=== PATIENT | female | born 1980 | race Two or more races ===

== ENCOUNTER 2016-09-29 16:41 | Inpatient (IN) | payer MEDICAID ==
[2016-09-29 17:11] VITALS: BMI 27.3
[2016-09-29] MEDS ORDERED: Vaccine Screening Complete SCH (18:00)
[2016-09-29] MEDS ORDERED: LR 500 ML IV PRN (18:33)
[2016-09-29] MEDS ORDERED: LR 250 ML IV PRN (18:33)
[2016-09-29] MEDS ORDERED: BUTORPHANOL 1 MG/ML VIAL IV PRN (18:33)
[2016-09-29] MEDS ORDERED: LR 1,000 ML IV SCH (19:00)
--- NOTE | 2016-09-29 19:02 | HISTPHYS ---
- HISTORY OF PRESENT ILLNESS Age: 36 Estimated Due Date: 09/24/16 Gestational Age: 41 : 5 Para: 4 Patient Presents to:: Labor & Delivery Presents for:: Contractions, Vaginal Bleeding. Denies: Decreased Movement , Leaking Fluid Details: Patient started cece around 130 and they are now every 3 minutes. Goes to [facility]. Current : GBS -, Other Complications (AMA (declined testing), dilated renal pelvis (resolved on repeat scan)) - REVIEW OF SYSTEMS ROS Negative Except As Marked: Yes ROS Negative except as marked Pain: Reports: Abdominal - ALLERGIES Allergies Allergy/AdvReac Type Severity Reaction Status Date / Time No Known Allergies Allergy Unverified 09/29/16 17:03 - CURRENT MEDICATIONS Home Medication List Vits W-Ca,Fe,FA(<1Mg) [] 1 each PO DAILY 09/29/16 [History] - PAST MEDICAL HISTORY Reports: No Significant History - PAST SURGICAL HISTORY Reports: None - FAMILY HISTORY Family History: Noncontributory - SOCIAL HISTORY Travel Outside of [place] in the Last 3 Months?: No Smoking Status: Never smoker - GENITOURINARY HISTORY HX : 5 Para: 4 Live Deliveries (# of pregnancies resulting in a live ): 4 - PHYSICAL EXAM Vital Signs:: Temperature: 98.3 F (09/29/16 16:41) HR: 93 (09/29/16 16:41) RR: 16 (09/29/16 16:41) BP: 128/73 (09/29/16 16:41) Pulse Ox: () GENERAL: Alert, Oriented, No Acute Distress CARDOVASCULAR/CHEST: Normal RESPIRATORY: Normal - CTA ABDOMEN: Bowel Sounds Present, Gravid, Soft Fundal Height (cm): 40 GENITOURINARY: Normal, VULVA & INTROITUS (normal with no masses, lesions, rashes , or swelling) MUSCULOSKELETAL: Normal, Strength/Tone Normal for Age. negative: Atrophy Dilation (cm): 4 Effacement (%): 80 Station: -2 Heart Rate: 140 Reactive Contractions: Regular Membranes: AROM Amniotic Fluid: Blood Tinged - ASSESSMENT (ACTIVE PROBLEMS) (1) Post term over 40 weeks Acute O48.0 - POST-TERM - PLAN Admit, Amniotomy, Consent, Monitoring, Ice Chips, IV Hydration, Labs, Pain Management
[2016-09-29 19:03] LABS: AUTOMATED BASOPHIL 1.2 % (0-2); AUTOMATED EOSINOPHIL 0.6 % (0-5); AUTOMATED LYMPH 18.6 % (17-44); AUTOMATED MONOCYTE 6.2 % (3-10); AUTOMATED NEUTROPHIL 73.4 % (45-76); MPV 7.8 fL (7.4-10.4)
[2016-09-29] MEDS ORDERED: OXYTOCIN 1,000 ML IV ONE (19:35)
[2016-09-29] MEDS ORDERED: LIDOCAINE 1% 30 ML VIAL (PRESERVATIVE FREE) ONE (19:35)
[2016-09-30] MEDS ORDERED: OXYCODONE HCL 5 MG TABLET PO PRN ×2 (00:05)
[2016-09-30] MEDS ORDERED: BISACODYL 10 MG SUPP PR PRN (00:05)
[2016-09-30] MEDS ORDERED: DIBUCAINE OINTMENT 1 OZ TUBE TOP PRN (00:05)
[2016-09-30] MEDS ORDERED: LANOLIN OINTMENT 0.25 OZ TUBE TOP PRN (00:05)
[2016-09-30] MEDS ORDERED: ZOLPIDEM TARTRATE 5 MG TAB PO PRN (00:05)
[2016-09-30] MEDS ORDERED: SODIUM CHLORIDE 0.9% 3 ML FLUSH FLUSH PRN (00:05)
[2016-09-30] MEDS ORDERED: ACETAMINOPHEN 325 MG/TAB TABLET PO PRN (00:05)
[2016-09-30] MEDS ORDERED: HYDROCORTISONE 25 MG SUPP PR PRN (00:05)
[2016-09-30] MEDS ORDERED: OXYTOCIN 1,000 ML IV ONE (00:05)
--- NOTE | 2016-09-30 00:11 | OBDELNOTE ---
Delivery Note - Problem/Diagnosis (1) Post term over 40 weeks Status: Acute (2) Vaginal delivery Status: Acute (3) Single live Status: Acute - Admitting Diagnosis Reason for Visit: Contractions Admission Date: 09/29/16 Admission time: 16:57 Gestational Age: 40 Labor Anesthesia/Analgesia: None Date: 09/30/16 Time: 23:51 Spontaneous Vaginal Delivery Presentation: Vertex Episiotomy: None Laceration: None EBL: 250 Fluid: Clear Placenta: Spontaneous Description: Normal, Complete Cord: 3 Vessels - Procedures Procedures: None - Data Order: [place] Infant Sex: Male Weight: 3.6 kg (1min): 9 (5min): 10 Feeding Plans for Infant: Breast Plans Circumcision: No [place] Complications: No Complications [place] to:: LDRP/Mother's Room - /Operative Complications /Op Complications: None Discharge Planning - REASON FOR ADMISSION Patient Presents to:: Labor & Delivery Reason for Visit: Contractions, Vaginal Bleeding - DISCHARGE INSTRUCTIONS Discharge Disposition: Home Condition: Good Prescriptions: Hydrocodone Bit/Acetaminophen [[place] 5-325 Tablet] 1 - 2 tab PO Q4H PRN #30 tab PRN Reason: Pain Ibuprofen Tablet [Motrin] 800 mg PO Q6 PRN #45 tab PRN Reason: Pain Referrals: [facility] [Provider Group] - Six Weeks Diet at Discharge: Regular Activity: Pelvic Rest Call Physician for: Foul Smelling Discharge, Pain/Redness in Calf/Leg, Soaking Pad in 1 hr, Temperature Above 100.4 Incision, Lacerations, or Tears: No
--- NOTE | 2016-09-30 00:14 | PCM.DCS92 ---
<Pat Burden - Last Filed: 09/30/16 00:13> - Primary/Secondary Discharge Diagnoses (1) Post term over 40 weeks Acute O48.0 - POST-TERM (2) Vaginal delivery Acute O80 - ENCOUNTER FOR FULL-TERM UNCOMPLICATED DELIVERY (3) Single live Acute Z37.0 - SINGLE LIVE - HOSPITAL COURSE /Op Complications: None - DISCHARGE INSTRUCTIONS Discharge Disposition: Home Discharge Condition: Good Cognitive Discharge Status: Unimpaired Fuctional Discharge Status: Independent Patient Leaving with Prescriptions?: Yes Home Medications/ New Prescriptions: New Hydrocodone Bit/Acetaminophen [[place] 5-325 Tablet] 1 - 2 tab PO Q4H PRN #30 tab PRN Reason: Pain Ibuprofen Tablet [Motrin] 800 mg PO Q6 PRN #45 tab PRN Reason: Pain No Action Vits W-Ca,Fe,FA(<1Mg) [] 1 each PO DAILY Referrals: [facility] [Provider Group] - 11/11/16 9:00 am - Diet Diet at Discharge: Regular - Activity Activity: Pelvic Rest - Instructions Call Physician for: Foul Smelling Discharge, Pain/Redness in Calf/Leg, Soaking Pad in 1 hr, Temperature Above 100.4 - Incision Incision, Lacerations, or Tears: No - DC Summary Notes Discharge Medications: *See "Discharge Medication List" for a complete list of Home Medications and Discharge Medications.* Obstetric Hospital Course - Admitting Diagnosis Reason for Visit: Contractions Admission Date: 09/29/16 Admission time: 16:57 Gestational Age: 40 Labor Anesthesia/Analgesia: None Date: 09/30/16 Time: 23:51 Spontaneous Vaginal Delivery Presentation: Vertex Episiotomy: None Laceration: None EBL: 250 Fluid: Clear Placenta: Spontaneous Description: Normal, Complete Cord: 3 Vessels - Procedures Procedures: None - Data Order: [place] Sex: Male Weight: 3.6 kg (1min): 9 (5min): 10 Feeding Plans for : Breast Plans Circumcision: No Complications: No Complications [place] to:: LDRP/Mother's Room - /Operative Complications /Op Complications: None <Marty Gutierrez - Last Filed: 10/01/16 10:11> - Primary/Secondary Discharge Diagnoses (1) care following vaginal delivery Acute Z39.2 - ENCOUNTER FOR ROUTINE FOLLOW-UP - DC Summary Notes Discharge Medications: *See "Discharge Medication List" for a complete list of Home Medications and Discharge Medications.*
[2016-09-30] MEDS: IBUPROFEN 800 MG TAB PO SCH ×4 (00:53→21:57)
[2016-09-30] MEDS ORDERED: Pharmacy Order Set Alert SCH (01:00)
[2016-09-30] MEDS: SODIUM CHLORIDE 0.9% 3 ML FLUSH FLUSH SCH ×2 (06:17→19:44)
[2016-09-30] MEDS: LR 1,000 ML IV SCH (06:17)
--- NOTE | 2016-09-30 07:25 | OBGYNPROG ---
- Subjective Post Day: 1 Reports: Ambulating, Out of Bed, Tolerating Liquid Diet, Voiding Freely, Moderate Lochia. Denies: Complaints, Dizziness, Headache, Nausea, Vomitting, Chest Pain, Shortness of Breath Pain: Reports: Well Managed - Objective Vital Signs: Last Vital Signs Temp 98.1 F 09/30/16 06:19 Pulse 78 09/30/16 06:19 Resp 18 09/30/16 06:19 BP 129/60 09/30/16 06:19 Pulse Ox H&H Results 09/29/16 18:50 Hgb 12.1 Hct 36.0 General: Alert, Oriented, No Acute Distress Cardiovascular/Chest: Normal Respiratory: Normal - CTA ABDOMEN: Non-Tender, Soft Fundus: Firm. Denies: Tender EXTERMITIES: Moves All Extremeties DARRIN'S SIGN: Denies: Bilateral OBGYN Progress Note - ASSESSMENT (1) care following vaginal delivery Status: Acute Code(s): Z39.2 - ENCOUNTER FOR ROUTINE FOLLOW-UP - PLAN Routine Care, Supportive Care
[2016-10-01] MEDS: SODIUM CHLORIDE 0.9% 3 ML FLUSH FLUSH SCH (03:20)
[2016-10-01] MEDS: IBUPROFEN 800 MG TAB PO SCH ×2 (03:20→06:04)
[2016-10-01 05:32] VITALS: BP 125/60; PULSE 78; TEMP 97.8
[2016-10-01] MEDS: LR 1,000 ML IV SCH (06:04)
--- NOTE | 2016-10-01 10:11 | OBGYNPROG ---
- Subjective Post Day: 1 Reports: Ambulating, Out of Bed, Tolerating Regular Diet, Moderate Lochia. Denies: Complaints Pain: Reports: None - Objective Vital Signs: Last Vital Signs Temp 97.8 F 10/01/16 05:30 Pulse 78 10/01/16 05:30 Resp 18 10/01/16 05:30 BP 125/60 10/01/16 05:30 Pulse Ox General: Alert, Oriented, No Acute Distress ABDOMEN: Non-Distended, Non-Tender, Soft Fundus: U - 1, Firm MUSCULOSKELETAL: Normal EXTERMITIES: Moves All Extremeties DARRIN'S SIGN: Denies: Bilateral OBGYN Progress Note - ASSESSMENT (1) care following vaginal delivery Status: Acute Code(s): Z39.2 - ENCOUNTER FOR ROUTINE FOLLOW-UP - PLAN Discharge
== END 2016-10-01 11:59 | disposition home or self-care (01) | DRG 775 ==
LOC: LD 16:41 → MASU 18:31
PROVIDERS: ADMIT Obstetrics & Gynecology; ATTEND Obstetrics & Gynecology
PROC: 10907ZC Drainage of Amniotic Fluid, Therapeutic from Products of Conception, Via Natural or Artificial Opening (ICD-10-PCS; principal; 2016-09-30)
PROC: 10E0XZZ Delivery of Products of Conception, External Approach (ICD-10-PCS; 2016-09-30)
DX: O48.0 Post-term pregnancy (principal); Z37.0 Single live birth; Z3A.40 40 weeks gestation of pregnancy
CPT/HCPCS: 59400; 81002; 85014; 85018; 85025; 86592; 86900; 86901; 96360; 96361; 96365; 96366; J2001; J2590; J3490